=== PATIENT | male | born 1970 | race Caucasian/White ===

== ENCOUNTER 2017-04-05 07:46 | Emergency (ER) | payer OTHER ==
[~2017-04-05] VITALS: Ht 182.9 cm; Wt 93.0 kg
[~2017-04-05 07:46] MED LIST: CYCLOBENZAPRINE10 M1 PO; LIORESAL 10MG T10 MG PO; MOTRIN 600 MG600 MG PO; NAPROSYN500 M1 PO; ULTRAM(MONOGRAP50 MG PO; VICODIN 5-3001 EACH PO
--- NOTE | 2017-04-05 07:58 | ED HAND/WRIST INJURY COMPLAINT ---
History of Present Illness General Chief Complaint: Hand or Wrist Injury Stated Complaint: RT WRIST PAIN Source: patient Exam Limitations: no limitations Vital Signs & Intake/Output Vital Signs & Intake/Output Vital Signs Date Time Temp Pulse Resp B/P B/P Pulse O2 O2 Flow FiO2 Mean Ox Delivery Rate 04/05 0854 98.9 88 18 188/74 98 Room Air 04/05 0748 98.7 90 20 195/120 97 Room Air Allergies Coded Allergies: NO KNOWN ALLERGIES (08/27/11) Reconcile Medications Naproxen (Naprosyn) 500 MG TABLET 1 TAB PO BID PRN pain Triage Note: PT TO ED C/O RIGHT WRIST PAIN. STATES LAST NIGHT WHILE USING A DRILL HIS WRIST TWISTED WRONG. PAIN STARTED THIS AM. MEDICATED WITH MOTRIN IN TRIAGE. Triage Nurses Notes Reviewed? yes Occurred: yesterday Duration: day(s): (1) Timing: no prior history Injury Environment: home Severity: moderate Severity Numbers: 8 Pain/Injury Location: Right: Wrist, Hand. Context: TWISTING Method of Injury: twisted Modifying Factors: Improves With: immobilization. Worsens With: movement. Associated Symptoms: swelling HPI: Patient is a 46-year-old male presenting to the emergency department with chief complaint of right wrist pain that sprinkling on since last night. Patient reports that he was using a drill and lost control of it and it twisted his wrist. Since then he has had moderate pain is worse with movement. Denies numbness or tingling. No radiation of the pain. 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 No history of similar injury in the past. Denies any nausea vomiting fevers or chills. Has been icing and taking ibuprofen with some relief. (ANGIE ISLAS) Past History Travel History Traveled to [place] past 21 day No Medical History Any Pertinent Medical History? see below for history Neurological: NONE EENT: NONE Cardiovascular: NONE Respiratory: NONE Gastrointestinal: NONE Hepatic: NONE Renal: NONE Musculoskeletal: BACK PROBLEMS Surgical History Surgical History: laminectomy Psychosocial History Who do you live with Spouse Services at Home None What is your primary language Estonian Tobacco Use: Current Daily Use Daily Tobacco Use Amount/Type: => 5 Cigarettes daily ETOH Use: denies use Illicit Drug Use: denies illicit drug use Family History Hx Contributory? No (ANGIE ISLAS) Review of Systems Review of Systems Constitutional: Reports: no symptoms. Comments Review of systems: See HPI, All other systems negative. Constitutional, no chills fever or weight loss HEENT: No visual changes no sore throat no congestion Cardiovascular: No chest pain ,palpitation , orthopnea or ankle swelling Skin, no jaundice no rashes Respiratory: No dyspnea cough sputum or hemoptysis GI: No nausea no vomiting Muscle skeletal: no back pain, no neck pain, Neurologic: No numbness no confusion Psych: No stress anxiety or depression,. Heme/endocrine: No bruising no bleeding Immunology: No splenectomy or history of AIDS (STEPHANIE CARRION,ANGIE) Physical Exam Physical Exam General Appearance: well developed/nourished, no apparent distress, alert, awake , comfortable Hand Left: normal inspection, normal range of motion Hand Right: limited range of motion, tender Comments: Well-developed well-nourished person in no acute distress HEENT: Nose is atraumatic. Neck: Normal inspection Cardiovascular: normal JVP Respiratory: No respiratory distress Extremity: Tender to palpation over the right snuffbox and right distal radius. Limited range of motion of right wrist secondary to pain. Mild edema noted in this area. Pain with all or deviation of the right wrist. No pain to palpation over the digits. Capillary refill is intact in upper extremities bilaterally. Radial pulses are 2+ bilaterally. No obvious deformity. No pain to palpation or with range of motion of the right elbow, right shoulder. Neuro: Alert oriented x3, motor sensory normal and the upper extremities bilaterally. Skin: No appreciable rash on exposed skin, skin is warm and dry. Psych: Mood and affect is normal, memory and judgment is normal. (STEPHANIE CARRION,ANGIE) Progress Differential Diagnosis: contusion, dislocation, fracture, sprain, tenosynovitis Plan of Care: Orders Procedure Date/time Status XRY-WRIST COMPLETE-RIGHT 04/05 758 Active Diagnostic Imaging: Viewed by Me: Radiology Read. Discussed w/RAD: Radiology Read. Radiology Impression: PATIENT: DANNA YOUSSEF PRESENT AGE: 46 PATIENT ACCOUNT NO: [id number] : 71 LOCATION: [facility] ORDERING PHYSICIAN: ANGIE CARRION SERVICE DATE: 04/05/17 EXAM TYPE: RAD - XRY-WRIST COMPLETE-RIGHT EXAMINATION: XR WRIST, RIGHT CLINICAL INFORMATION: Snuffbox tenderness. Wrist pain. COMPARISON: None TECHNIQUE: Four views of the right wrist. FINDINGS: The bones and soft tissues are normal. No fracture. Alignment is anatomic with normal joint spaces. No erosions or abnormal soft tissue calcifications. IMPRESSION: Unremarkable right wrist exam. Especially the navicular view reveals no fracture of the scaphoid bone. DICTATED BY: REDDY MCDOWELL MD DATE/TIME DICTATED:04/05/17832 [employer]ARRY SUPERVISOR [employer]:VAIBHAV DATE/TIME TRANSCRIBED:04/05/17832 CONFIDENTIAL, DO NOT COPY WITHOUT APPROPRIATE AUTHORIZATION. <Electronically signed in Other Vendor System> SIGNED BY: REDDY MCDOWELL MD 04/05/17837 (ANGIE ISLAS) Departure Departure Time of Disposition: 850 Disposition: HOME OR SELF CARE Condition: Stable Clinical Impression Primary Impression: Wrist sprain Referrals: NASRIN CARRION,BALWINDER WYMAN (PCP/Family) ROMI QUEVEDO,HALINA Blount Additional Instructions: Follow-up with orthopedics call to make an appointment. Wear wrist splint until follow-up. Rest ice and elevate as much as possible. Take naproxen as prescribed out with pain. Return for worsening symptoms or concerns. Departure Forms: Customer Survey General Discharge Information Prescriptions: Current Visit Scripts Naproxen (Naprosyn) 1 TAB PO BID PRN pain #20 TAB (ANGIE ISLAS) PA/CENTRIFUGAL CASTING MACHINE OPERATOR Co-Sign Statement Statement: ED Attending supervision documentation- [] I saw and evaluated the patient. I have also reviewed all the pertinent lab results and diagnostic results. I agree with the findings and the plan of care as documented in the PA's/CENTRIFUGAL CASTING MACHINE OPERATOR's documentation. [X] I have reviewed the ED Record and agree with the PA's/CENTRIFUGAL CASTING MACHINE OPERATOR's documentation. [] Additions or exceptions (if any) to the PAs/CENTRIFUGAL CASTING MACHINE OPERATOR's note and plan are summarized below: [] (LEATHA JIMENEZ DO) Procedures Splinting Location: RIGHT WRIST Manual Alignment Performed: No Pre-Made Type: velcro Splint: thumb spica Splint Applied By: splint applied by other (NURSING) Pre-Proc Neuro Vasc Exam: normal Post-Proc Neuro Vasc Exam: normal Progress: TOLERTAED PROCEDURE WELL (ANGIE ISLAS)
--- NOTE | 2017-04-05 08:38 | RADIOLOGY REPORT ---
EXAMINATION: XR WRIST, RIGHT CLINICAL INFORMATION: Snuffbox tenderness. Wrist pain. COMPARISON: None TECHNIQUE: Four views of the right wrist. FINDINGS: The bones and soft tissues are normal. No fracture. Alignment is anatomic with normal joint spaces. No erosions or abnormal soft tissue calcifications. IMPRESSION: Unremarkable right wrist exam. Especially the navicular view reveals no fracture of the scaphoid bone.
[2017-04-05] MEDS ORDERED: NAPROSYN500 M1 PO (08:51)
[2017-04-05 08:54] VITALS: BP 188/74
== END 2017-04-05 08:55 ==
LOC: ERH 07:46
DX: S63.501A Unspecified sprain of right wrist, initial encounter (principal); X58.XXXA Exposure to other specified factors, initial encounter
CPT/HCPCS: 73110-RT